=== PATIENT | female | born 1990 | race African-American/Black ===

== ENCOUNTER 2020-12-17 12:02 | Emergency (ER) | payer OTHER ==
[~2020-12-17] VITALS: Ht 162.6 cm; Wt 75.0 kg
[2020-12-17] MEDS ORDERED: multivitamins (12:45)
[2020-12-17] MEDS ORDERED: NAPR-681 PO (14:49)
[2020-12-17 14:57] VITALS: BP 127/91
== END 2020-12-17 14:58 | disposition home or self-care (01) ==
LOC: ER 12:02
DX: S00.93XA Contusion of unspecified part of head, initial encounter (principal); Y93.39 Activity, other involving climbing, rappelling and jumping off; Y93.89 Activity, other specified; Y92.89 Other specified places as the place of occurrence of the external cause; Y99.8 Other external cause status
CPT/HCPCS: 99282